=== PATIENT | male | born 1955 | race Caucasian/White ===

== ENCOUNTER → 2018-01-30 10:07 | Outpatient (CLI) | payer OTHER, SELFPAY ==
[2018-01-31 06:55] LABS: PSA, Free 1.15 ng/mL; Prostate Specific Ag 5.8 ng/mL (0.0-4.0)
== END ==
PROVIDERS: Visit Provider Urology
DX: R97.20 Elevated prostate specific antigen [PSA] (principal)
CPT/HCPCS: 36415; 84153; 84154

== ENCOUNTER → 2019-01-29 09:39 | Outpatient (CLI) | payer OTHER, SELFPAY ==
[2019-01-30 10:49] LABS: PSA, Free 1.65 ng/mL; Prostate Specific Ag 6.4 ng/mL (0.0-4.0)
== END ==
PROVIDERS: Visit Provider Urology
DX: N40.0 Benign prostatic hyperplasia without lower urinary tract symptoms (principal)
CPT/HCPCS: 36415; 84153; 84154

== ENCOUNTER → 2020-02-04 09:37 | Outpatient (CLI) | payer MEDICARE, SELFPAY ==
[2020-02-05 13:23] LABS: PSA, Free 1.43 ng/mL; Prostate Specific Ag 8.3 ng/mL (0.0-4.0)
== END ==
PROVIDERS: Visit Provider Urology
DX: Z87.898 Personal history of other specified conditions (principal); R97.20 Elevated prostate specific antigen [PSA]
CPT/HCPCS: 36415; 84153; 84154

== ENCOUNTER → 2020-08-30 10:30 | Outpatient (CLI) | payer MEDICARE, SELFPAY ==
[2020-08-31 09:13] LABS: PSA, Free 1.17 ng/mL; Prostate Specific Ag 6.3 ng/mL (0.0-4.0)
== END ==
PROVIDERS: Visit Provider Urology
DX: R97.20 Elevated prostate specific antigen [PSA] (principal)
CPT/HCPCS: 84153; 84154

== ENCOUNTER → 2021-03-02 10:03 | Outpatient (CLI) | payer MEDICARE, SELFPAY ==
[2021-03-03 08:14] LABS: PSA, Free 2.07 ng/mL; Prostate Specific Ag 7.6 ng/mL (0.0-4.0)
== END ==
PROVIDERS: Visit Provider Urology
DX: R97.20 Elevated prostate specific antigen [PSA] (principal)
CPT/HCPCS: 36415; 84153; 84154

== ENCOUNTER → 2021-08-31 11:10 | Outpatient (CLI) | payer MEDICARE, SELFPAY ==
[2021-09-01 10:17] LABS: PSA, Free 1.34 ng/mL; Prostate Specific Ag 6.7 ng/mL (0.0-4.0)
== END ==
PROVIDERS: PCP Family Medicine; Visit Provider Urology
DX: R97.20 Elevated prostate specific antigen [PSA] (principal)
CPT/HCPCS: 36415; 84153; 84154

== ENCOUNTER 2022-03-22 11:12 | Emergency (ER) | payer MEDICARE, SELFPAY ==
[2022-03-22 11:13] VITALS: BP 198/104; PULSE 104; RESP 20; TEMP 36.5; O2SAT 97; BMI 32.1
[2022-03-22 11:21] VITALS: BP 198/100; PULSE 93; RESP 18; O2SAT 98
--- NOTE | 2022-03-22 11:34 | HMH.EDGENADL ---
Discharge Plan Disposition Patient Disposition: Home, Self-Care Chief Complaint: Urogenital-Male Prescriptions Prescriptions: No Action ramipril 5 mg capsule 5 mg PO DAILY metformin 500 mg tablet 500 mg PO BID hydrochlorothiazide 12.5 mg tablet 12.5 mg PO DAILY rosuvastatin 10 mg tablet 10 mg PO DAILY hydrocodone-acetaminophen 1 EACH tablet 1 each PO Q8H PRN (Reason: Moderate To Severe Pain) Qty: 6 0RF promethazine 25 MG suppository 25 mg RC Q6H PRN (Reason: Nausea) Qty: 9 0RF nitrofurantoin monohyd/m-cryst 100 MG capsule 100 mg PO BID Qty: 14 0RF Referrals Follow up/Referrals: Shayan Lomeli MD [Primary Care Provider] - See instructions Activity Restrictions/Add. Instructions Additional Instructions/Restrictions: Please keep Davis catheter in until your appointment with Dr. Huston. Return for any fever flank pain or any other concerns within the next 8 hours. Follow-up as documented with Dr. Huston on Saturday. Clinical Impressions Clinical Impression: Acute urinary retention Discharge ED Provider: Cosme Lopez General Adult HPI General Chief complaint: Urogenital-Male Stated complaint: can't urinate, pain in groin area Time Seen by Provider: 03/22/22 11:25 History of Present Illness HPI narrative: 66-year-old male with history of kidney stone, BPH hypertension presents with difficulty with urination. He says he has been dribbling all night and having difficulty with peeing. He denies fever chills flank pain abdominal pain nausea or vomiting. He has not had problems with urinary retention before. He follows with Dr. Huston however was not able to be evaluated today Related Data Home Medications Medication Instructions Recorded Confirmed hydrochlorothiazide 12.5 mg tablet 12.5 mg PO DAILY Hypertension 01/30/18 08/31/21 metformin 500 mg tablet 500 mg PO BID diabetes management 01/30/18 08/31/21 ramipril 5 mg capsule 5 mg PO DAILY unk 01/30/18 08/31/21 rosuvastatin 10 mg tablet 10 mg PO DAILY Cholesterol 01/30/18 08/31/21 Previous Rx's Medication Instructions Recorded hydrocodone 5 mg-acetaminophen 325 1 each PO Q8H PRN Moderate To 04/19/18 mg tablet Severe Pain #6 tabs nitrofurantoin 100 mg PO BID #14 caps 04/19/18 monohydrate/macrocrystals 100 mg capsule promethazine 25 mg rectal 25 mg [place] Q6H PRN Nausea ##9 04/19/18 suppository Allergies Allergy/AdvReac Type Severity Reaction Status Date / Time PCN (PENICILLIN) Allergy Unknown Uncoded 08/31/21 10:44 PFSH [facility] Disclaimer: The information contained in this section may have been updated after the patient was seen, as this information can be updated by other users. Social History Smoking Status: Never smoker alcohol intake: never substance use type: denies use current occupational status: employed and retired Travel in the last 8 weeks: None household members: spouse housing: house ROS Obtained: Yes All systems reviewed & no additional complaints except as documented Constitutional Constitutional: Denies fever(s) Eyes Eyes: Denies dry eyes and Denies itchy eyes ENT Ears, Nose, Mouth, and Throat: Denies dizziness Cardiovascular Cardiovascular: Denies dyspnea Respiratory Respiratory: Denies cough and Denies dyspnea Gastrointestinal Gastrointestingal: Denies abdominal pain Genitourinary Male Genitourinary: Reports difficulty urinating, Reports oliguria and Denies urinary urgency Musculoskeletal Musculoskeletal: Denies abnormal gait Integumentary/Breasts Skin/Breast: Denies redness Neurologic Neurologic: Denies abnormal gait and Denies dizziness Allergic/Immunologic Allergic/Immunologic: Denies itchy eyes Physical Exam General General appearance: alert and in no apparent distress Eye Eye exam: Present PERRL and EOMI ENT ENT exam: Present normal exam and normal oropharynx Neck Neck exam: Present normal inspection Chest Chest inspection: Present symmetri
[2022-03-22 11:40] LABS: Microscopic, Urine URINE MICROSCOPIC (MICROSCOPIC)
--- NOTE | 2022-03-22 11:44 | PC.NURSE ---
1130 approx- pt to restroom to try to void to provide sample and ER MD requesting post void residual check with bladder scan. pt able to void approx 2-3 mL of urine, bladder scan reveals 610 mL of urine noted, notified ER MD who gave verbal order for catheter placement.
[2022-03-22 11:45] LABS: Appearance,Urine CLEAR (Clear); Bilirubin,Urine Negative (Negative); Blood, Urine Negative (Negative); Color,Urine YELLOW (Yellow); Glucose,Urine (UA) Negative (Negative); Ketones,Urine Negative (Negative); Leukocyte Esterase,Urine Negative (Negative); Nitrate,Urine Negative (Negative); PH,Urine 5.5 (5.0-8.5); Protein,Urine Negative (Negative); Urobilinogen,Urine 0.2 EU/dl (0.2)
--- NOTE | 2022-03-22 11:46 | PC.NURSE ---
pt tolerated catheter placement, draining clear dark yellow urine, pt reports improvement of pain after placement of catheter, pt resting in bed, states no needs at this time.
[2022-03-22 12:01] VITALS: BP 143/77; PULSE 91; RESP 18; O2SAT 92
--- NOTE | 2022-03-22 12:01 | PC.NURSE ---
APPOINTMENT MADE WITH DR PAUL ON SATURDAY AT 0930
[2022-03-22 12:15] VITALS: BP 143/77; PULSE 90; RESP 18; TEMP 36.6; O2SAT 97
== END 2022-03-22 12:15 | disposition home or self-care (01) ==
PROVIDERS: Emergency Provider Emergency Medicine; PCP Family Medicine
DX: R33.9 Retention of urine, unspecified (principal); R10.2 Pelvic and perineal pain; I10 Essential (primary) hypertension; N40.1 Benign prostatic hyperplasia with lower urinary tract symptoms; Z87.440 Personal history of urinary (tract) infections
CPT/HCPCS: 51702; 81001; 99284

== ENCOUNTER 2023-10-21 09:07 | Emergency (ER) | payer MEDICARE, SELFPAY ==
[2023-10-21 09:08] VITALS: BP 175/94; PULSE 99; RESP 21; TEMP 36.6; O2SAT 98; BMI 30.7
[2023-10-21 09:37] LABS: MANUAL DIFFERENTIAL MANUAL DIFFERENTIAL (MANUAL DIFF)
[2023-10-21 09:49] LABS: Microscopic, Urine URINE MICROSCOPIC (MICROSCOPIC)
--- NOTE | 2023-10-21 10:06 | PC.NURSE ---
Dr. Yoder at BS for pt eval
--- NOTE | 2023-10-21 10:06 | PC.NURSE ---
Dr. Yoder at bedside
--- NOTE | 2023-10-21 10:30 | HMH.EDGENADL ---
Discharge Plan Disposition Patient Disposition: Home, Self-Care Chief Complaint: Urogenital-Male Prescriptions Prescriptions: No Action ramipril 5 mg capsule 5 mg PO DAILY metformin 500 mg tablet 500 mg PO BID hydrochlorothiazide 12.5 mg tablet 12.5 mg PO DAILY rosuvastatin 10 mg tablet 10 mg PO DAILY hydrocodone-acetaminophen 1 EACH tablet 1 each PO Q8H PRN (Reason: Moderate To Severe Pain) Qty: 6 0RF promethazine 25 MG suppository 25 mg RC Q6H PRN (Reason: Nausea) Qty: 9 0RF nitrofurantoin monohyd/m-cryst 100 MG capsule 100 mg PO BID Qty: 14 0RF Referrals Follow up/Referrals: Shayan Lomeli MD [Primary Care Provider] - See instructions Activity Restrictions/Add. Instructions Additional Instructions/Restrictions: At this time it was felt you are safe to be discharged home. If new or worsening symptoms please do not hesitate to return the emergency department. Please call and schedule appoint with your urologist as soon as you are able as discussed. Clinical Impressions Clinical Impression: BPH (benign prostatic hyperplasia), Acute urinary retention Instructions Patient Instructions: DI for Urinary Tract Infection (UTI), DI for Urinary Tract Infection in Children Print Language Print Language: [place]ian Discharge ED Provider: Caleb Yoder General Adult HPI General Chief complaint: Urogenital-Male Stated complaint: Cant Urinate Time Seen by Provider: 10/21/23 09:21 Mode of Arrival: Family Vehicle Source of Information: Patient Limitations: No Limitations Description of Symptoms (Recalled from ER Triage Doc. by RN): Pt c/o inability to urinate since last night. States he has had this issue before and follows Dr. Huston. States it has been several years since he had to have a mckeon, but he feels pressure to urinate and has been pushing but just a trickle comes out . Denies any fever, chills, or body aches. Denies any gross hematuria. History of Present Illness HPI narrative: Patient is a 67-year-old male with past medical history of BPD on Flomax, previous urinary retention who presents emergency department for evaluation of urinary retention. He has had 1 single episode of this prior in the setting of cold medicine use with his BPH that required a Mckeon be anchored. Over the last 24 hours since last night he has had difficulty voiding with inability to void because and present here for continued evaluation. There was suprapubic discomfort. No other abdominal pain, no other acute complaints at this time. Related Data Home Medications ?Medication ?Instructions ?Recorded ?Confirmed hydrochlorothiazide 12.5 mg tablet 12.5 mg PO DAILY Hypertension 01/30/18 08/31/21 metformin 500 mg tablet 500 mg PO BID diabetes management 01/30/18 08/31/21 ramipril 5 mg capsule 5 mg PO DAILY unk 01/30/18 08/31/21 rosuvastatin 10 mg tablet 10 mg PO DAILY Cholesterol 01/30/18 08/31/21 Previous Rx's ?Medication ?Instructions ?Recorded hydrocodone 5 mg-acetaminophen 325 1 each PO Q8H PRN Moderate To 04/19/18 mg tablet Severe Pain #6 tabs nitrofurantoin 100 mg PO BID #14 caps 04/19/18 monohydrate/macrocrystals 100 mg capsule promethazine 25 mg rectal 25 mg [place] Q6H PRN Nausea ##9 04/19/18 suppository Allergies Allergy/AdvReac Type Severity Reaction Status Date / Time PCN (PENICILLIN) Allergy Unknown Uncoded 08/31/21 10:44 [facility] Disclaimer: The information contained in this section may have been updated after the patient was seen, as this information can be updated by other users. Social History Smoking Status: Never smoker alcohol intake: never substance use type: denies use current occupational status: employed and retired Travel in the last 8 weeks: None household members: spouse housing: house ROS Obtained: Yes Systems reviewed as appropriate & no additional complaints except as documented Physical Exam General General appearance:
[2023-10-21 10:33] LABS: Appearance,Urine CLEAR (Clear); Bilirubin,Urine Negative (Negative); Blood, Urine 3+ (Negative); Color,Urine YELLOW (Yellow); Glucose,Urine (UA) Negative (Negative); Ketones,Urine Negative (Negative); Leukocyte Esterase,Urine Negative (Negative); Nitrate,Urine Negative (Negative); Protein,Urine Negative (Negative); Specific Gravity, Urine 1.015 (1.005-1.030); Urobilinogen,Urine 0.2 EU/dl (0.2)
[2023-10-21 10:48] LABS: Albumin Level 4.6 g/dl (3.5-5.0); Chloride 105 mmol/L (98-107); Sodium 139 mmol/L (136-145)
[2023-10-21 10:49] LABS: Potassium 4.4 mmoL/L (3.5-5.1)
[2023-10-21 10:51] LABS: Alanine Aminotransferase 28 U/L (12-78); Albumin/Globulin Ratio 1.4 (1.1-1.8); Alkaline Phosphatase 69 U/L (38-126); Anion Gap 11.4 mEq/L (5-15); Aspartate Amino Transferase 30 U/L (17-59); Bilirubin,Total 0.5 mg/dl (0.2-1.3); Blood Urea Nitrogen 12 mg/dl (9-20); Carbon Dioxide 27 mmol/L (22.0-30.0); Creatinine Clearance Estimated 100 mL/min (50-200); Estimated Glomerular Filt Rate 84 ml/min (>60); GFR (African American) 102 ML/MIN (>60); Globulin 3.2 g/dL (1.3-3.2); Total Protein,Serum 7.8 g/dl (6.3-8.2)
[2023-10-21 10:52] LABS: Glucose 133 mg/dl (74-100)
[2023-10-21 10:59] LABS: Squamous Epithelial Cell,Urine Occasional #/hpf (0-5); WBC,Urine Occasional #/hpf (0-3)
--- NOTE | 2023-10-21 11:36 | PC.NURSE ---
pt resting in bed. updated on plan of care. bed in lowest position. call light within reach. no questions or concerns voiced.
[2023-10-21 11:39] LABS: Basophils % 0.6 % (0.1-2.0); Eosinophils # 0.1 K/mm3 (0.0-0.4); Eosinophils % 1.3 % (0.1-12.0); Hematocrit 50.4 % (42.0-52.0); Hemoglobin 15.9 g/dL (14.1-18.0); Lymphocytes # 0.9 K/mm3 (0.7-4.5); Lymphocytes % 13.4 % (10-50); Mean Corpuscular HGB Conc 31.5 g/dL (31.8-35.4); Mean Corpuscular Hemoglobin 28.1 pg (27.0-31.2); Mean Corpuscular Volume 89.2 fl (80-94); Mean Platelet Volume 8.3 fl (7.4-10.4); Monocytes # 0.4 K/mm3 (0.1-1.0); Neutrophils # 5.2 K/mm3 (1.8-7.8); Neutrophils % 78.6 % (37.0-80.0); Platelet Count 230 K/mm3 (142-424); Red Blood Count 5.66 M/mm3 (4.60-6.20); Red Cell Distribution Width 14.7 % (11.5-17.5); White Blood Count 6.6 K/mm3 (4.8-10.8)
[2023-10-21 11:41] VITALS: BP 140/96; PULSE 78; RESP 18; TEMP 36.7; O2SAT 96
[2023-10-21 12:13] LABS: Lymphocytes % 13 % (10-50); Monocytes % 6 % (2-9); Neutrophils % 81 % (42-76); Platelet Estimate Normal; RBC Morphology Normal; Total Cells Counted 100
== END 2023-10-21 11:48 | disposition home or self-care (01) ==
PROVIDERS: Emergency Provider Emergency Medicine; PCP Family Medicine
DX: N40.1 Benign prostatic hyperplasia with lower urinary tract symptoms (principal); R33.9 Retention of urine, unspecified
CPT/HCPCS: 51702; 80053; 81001; 85007; 85014; 85018; 85048; 85049; 99284

== ENCOUNTER 2023-11-02 07:27 | Emergency (ER) | payer MEDICARE, SELFPAY ==
[2023-11-02 07:28] VITALS: BP 137/77; PULSE 89; RESP 20; TEMP 36.8; O2SAT 98; BMI 29.9
[2023-11-02 07:35] VITALS: BP 137/77; PULSE 89; RESP 18; O2SAT 98
--- NOTE | 2023-11-02 07:44 | PC.NURSE ---
bladder scan for >500
[2023-11-02 08:00] VITALS: BP 156/81; PULSE 84; RESP 18; O2SAT 95
[2023-11-02 08:00] LABS: Microscopic, Urine URINE MICROSCOPIC (MICROSCOPIC)
[2023-11-02 08:02] LABS: Appearance,Urine SL CLOUDY (Clear); Bilirubin,Urine Negative (Negative); Blood, Urine 1+ (Negative); Color,Urine YELLOW (Yellow); Glucose,Urine (UA) Negative (Negative); Ketones,Urine Negative (Negative); Leukocyte Esterase,Urine TRACE (Negative); Nitrate,Urine POSITIVE (Negative); Protein,Urine Negative (Negative); Urobilinogen,Urine 0.2 EU/dl (0.2)
[2023-11-02 08:11] LABS: Bacteria,Urine 4+ /lpf
[2023-11-02] MEDS: CEFDINIR 300MG CAPSULE 300 MG PO (08:24)
--- NOTE | 2023-11-02 08:24 | PC.NURSE ---
i emptied approx 800 out of pts mckeon.
[2023-11-02 08:30] VITALS: BP 129/71; PULSE 78; RESP 16; O2SAT 96
--- NOTE | 2023-11-02 08:55 | HMH.EDGENADL ---
Discharge Plan Disposition Patient Disposition: Home, Self-Care Prescriptions Prescriptions: New cefdinir 300 mg capsule 300 mg PO BID 7 Days Qty: 14 0RF No Action ramipril 5 mg capsule 5 mg PO DAILY metformin 500 mg tablet 500 mg PO BID hydrochlorothiazide 12.5 mg tablet 12.5 mg PO DAILY rosuvastatin 10 mg tablet 10 mg PO DAILY hydrocodone-acetaminophen 1 EACH tablet 1 each PO Q8H PRN (Reason: Moderate To Severe Pain) Qty: 6 0RF promethazine 25 MG suppository 25 mg RC Q6H PRN (Reason: Nausea) Qty: 9 0RF nitrofurantoin monohyd/m-cryst 100 MG capsule 100 mg PO BID Qty: 14 0RF Referrals Follow up/Referrals: Shayan Lomeli MD [Primary Care Provider] - See instructions Activity Restrictions/Add. Instructions Additional Instructions/Restrictions: Call your family doctor to establish care for this visit to the emergency department and schedule follow-up within 48 hours to ensure improvement. If you have any worsening of your condition or any other concerning signs or symptoms, return to the emergency department or your primary care doctor for further evaluation. Be sure to clean catheter with cleaning solution at least once a day. Antibiotic twice daily for 7 days. Follow-up with urology as discussed. Clinical Impressions Clinical Impression: Bladder outlet obstruction, Acute UTI Instructions Patient Instructions: DI for Urinary Tract Infection (UTI), DI for Urinary Tract Infection in Children Print Language Print Language: Nigerian Discharge ED Provider: Rohan Suarez General Adult HPI General Chief complaint: Urogenital-Male Stated complaint: retaining urine Time Seen by Provider: 11/02/23 07:56 Mode of Arrival: Ambulatory Source of Information: Patient Limitations: No Limitations Description of Symptoms (Recalled from ER Triage Doc. by RN): unable to urinate. hx of prostate issues History of Present Illness HPI narrative: Please note that above description of symptoms, in this electronic medical record under categorization of recalled from ER triage doctor by RN are reflective of an initial nursing assessment, however, is not reflective of my full history and physical exam that was personally taken and clarified. Consequentially, this preceding description of symptoms, which may include the patient's categorized chief complaint in the EMR, do not reflect my personal clinical impression, and the ultimate description of history of present illness and patient stated complaints should be deferred to this section of the note. Unless stated otherwise or congruent with this section of the note, additional signs, symptoms, or incongruence should be interpreted as inaccurate with my clinical impression. Related Data Home Medications ?Medication ?Instructions ?Recorded ?Confirmed hydrochlorothiazide 12.5 mg tablet 12.5 mg PO DAILY Hypertension 01/30/18 08/31/21 metformin 500 mg tablet 500 mg PO BID diabetes management 01/30/18 08/31/21 ramipril 5 mg capsule 5 mg PO DAILY unk 01/30/18 08/31/21 rosuvastatin 10 mg tablet 10 mg PO DAILY Cholesterol 01/30/18 08/31/21 Previous Rx's ?Medication ?Instructions ?Recorded hydrocodone 5 mg-acetaminophen 325 1 each PO Q8H PRN Moderate To 04/19/18 mg tablet Severe Pain #6 tabs nitrofurantoin 100 mg PO BID #14 caps 04/19/18 monohydrate/macrocrystals 100 mg capsule promethazine 25 mg rectal 25 mg [place] Q6H PRN Nausea ##9 04/19/18 suppository cefdinir 300 mg capsule 300 mg PO BID 7 days #14 caps 11/02/23 Allergies Allergy/AdvReac Type Severity Reaction Status Date / Time PCN (PENICILLIN) Allergy Unknown Uncoded 08/31/21 10:44 [facility] Disclaimer: The information contained in this section may have been updated after the patient was seen, as this information can be updated by other users. Social History Smoking Status: Never smoker alcohol intake: never substance use type: denies use current occupational status: employed and retired Travel in the last 8 weeks: None household members: spouse housing: house ROS Obtained: Yes All systems reviewed & no additional complaints except as documented Physical Exam General General appearance: alert and in no apparent distress Head Head exam: atraumatic and normocephalic Eye Eye exam: Present normal appearance, PERRL and EOMI Neck Neck exam: Present normal inspection, full ROM and trachea midline Respiratory Respiratory exam: Absent respiratory distress, wheezes, stridor, accessory muscle use or prolonged expiratory phase Cardiovascular Cardiovascular exam: Present other (Pulses equal symmetric in upper and lower extremities) Abdominal Exam Abdominal exam: Present soft and distention; Absent tenderness or pulsatile mass Abdominal tenderness: Present suprapubic (Suprapubic distention, no tenderness) Extremities Exam Extremities exam: Absent edema Back Exam Back exam: Absent CVA tenderness (R) or CVA tenderness (L) Neurological Exam Neurological exam: Present alert, oriented X3 and CN II-XII intact; Absent motor sensory deficit Skin Skin exam: Present warm and dry; Absent diaphoresis or erythema Medical Decision Making Medical Records Medical records reviewed: Yes I reviewed the patient's medical records. [place] Inquiry Pt receiving controlled substance: No [place] was queried for this patient: No Vital Signs: 11/02/23 07:28 11/02/23 07:35 11/02/23 08:00 Temperature 98.2 F Temperature Source Oral Pulse Rate 89 84 Pulse Rate [Right] 89 Respiratory Rate 20 18 18 Blood Pressure 137/77 156/81 H Blood Pressure [Right Arm] 137/77 Blood Pressure Mean 89 89 Blood Pressure Mean [Right Arm] 97 02 Sat by Pulse Oximetry 98 98 95 Oxygen Delivery Method Room Air 11/02/23 08:30 Temperature Temperature Source Pulse Rate 78 Pulse Rate [Right] Respiratory Rate 16 Blood Pressure 129/71 Blood Pressure [Right Arm] Blood Pressure Mean 90 Blood Pressure Mean [Right Arm] 02 Sat by Pulse Oximetry 96 Oxygen Delivery Method Lab Data Lab Results 11/02/23 07:50: Urine Color Yellow, Urine Appearance Sl cloudy, Urine pH 6.0, Ur Specific [place] 1.020, Urine Protein Negative, Urine Glucose (UA) Negative, Urine Ketones Negative, Urine Blood 1+ A, Urine Nitrate Positive, Urine Bilirubin Negative, Urine Urobilinogen 0.2, Ur Leukocyte Esterase Trace, Urine RBC 5-10, Urine WBC 3-5, Ur Squamous Epith Cells None, Urine Bacteria 4+ Orders (Tests/Meds): ED MEDICATIONS Discontinued Medications Generic Name Dose Route Start Last Admin Trade Name Jalen PRN Reason Stop Dose Admin Cefdinir 300 mg 11/02/23 08:14 11/02/23 08:24 Cefdinir 300mg Capsule PO 11/02/23 08:15 300 mg ONCE ONE Administration ORDERS Category Date Time Status UA [Urinalysis and Microscopic] Stat Lab 11/02/23 07:50 Completed Urine Culture Stat Micro 11/02/23 07:50 Received Medical Decision Narrative: 67-year-old male history of BPH necessitating catheter twice in the past following with urology at outside facility presenting with urinary retention. Was able to go right around 10 PM last night, 10/31. This morning around 3 AM, try to wake up and go to the restroom, only had small amount of dribbling out. States that since that time, has had increasing pressure in his lower abdomen. No objective fevers or chills, nausea or vomiting, flank pain. No hematuria. No dysuria, abnormal urine symptoms otherwise. History obtained with patient. On arrival, patient in no distress, but does have suprapubic fullness. Differential includes BPH, UTI, malignancy, calcium stone obstruction, among others. Bladder scan with greater than 600 mL, Davis catheter was anchored and nearly 750 out. Urinalysis sent, patient does have urinary tract infection, given initial dose of cefdinir here. Conversation had with patient, he does have close follow-up with urology. I feel he is appropriate for home-going and outpatient follow-up. Because patient at baseline without signs or symptoms of clinical decompensation, deemed appropriate for discharge. Results were relayed to patient who voiced understanding and were agreeable to outpatient management and follow up. I discussed my clinical impression with patient and answered all questions. At this time, the evidence for any other entities in the differential is insufficient to warrant any further testing or ED observation. This was explained as well. Advisory was given that persistent or worsening symptoms require further evaluation. I confirmed the understanding of this discussion. [employer] Specialist disclaimer Much of this encounter note is an electronic silverware buffer spoken language to printed text. Electronic silverware buffer of the spoken language may permit errors. Although I have reviewed the note, some errors may still exist. Critical Care Critical Care Time Critical Care Time: No
[2023-11-02 08:56] VITALS: BP 129/71; PULSE 89; RESP 18; TEMP 36.7; O2SAT 98
--- NOTE | 2023-11-02 09:15 | PC.NURSE ---
i put pt a leg bag on for comfort at discharge. education on mckeon care given.
--- NOTE | 2023-11-04 09:32 | PC.NURSE ---
discussed final urine culture results with , pt dc with cefdinir, ntd
== END 2023-11-02 09:15 | disposition home or self-care (01) ==
PROVIDERS: Emergency Provider Emergency Medicine; PCP Family Medicine
DX: N32.0 Bladder-neck obstruction (principal); N39.0 Urinary tract infection, site not specified; N40.1 Benign prostatic hyperplasia with lower urinary tract symptoms
CPT/HCPCS: 81001; 87086; 87088; 87186; 99285

== ENCOUNTER 2024-06-09 09:36 | Outpatient (CLI) | payer MEDICARE, SELFPAY ==
--- NOTE | 2024-06-09 | CA_ITS ---
APPROVED REPORT Exam: Exercise Treadmill Technologist: Selene Hedrick Ht: 5 ft 10 in Wt: 243 lbs BSA: 2.27 m2 HR: 72 bpm BP: 158/95 mmHg Rhythm: NSR Stress Test Details Test: Exercise stress testing was performed using a Yfn protocol. HR Resting HR: 72 bpm Max Heart Rate (APMHR): 151 bpm Max HR Achieved: 158 bpm Target HR (85% APMHR): 128 bpm % of APMHR: 105 Recovery HR: 98 bpm HR response to stress: Normal HR response to stress BP Resting BP: 158.0/95.0 mmHg Max BP: 200.0/88.0 mmHg Recovery BP: 147.0/98.0 mmHg BP response to stress: Abnormal hypertensive response to stress. ECG Resting ECG: Sinus rhythm with PAC Stress ECG: < 0.[address] depression Arrhythmia: PACs, PVCs Clinical Exercise duration: 10:00 min Exercise capacity: 12.1 METs Stress ECG Conclusion Symptoms: Mild dyspnea, leg fatigue Arrhythmias/Ectopy: PAC, PVC ST-T Changes: 0.[address] depression Conclusion: Average exercise capacity. No evidence of ischemia on ECG at peak stress. Of note, the patient had a hypertensive BP response to exercise. BP control is recommended. Electronically signed by : Fang Jackson MD 06/09/2024 15:09:31
--- OUTSIDE RECORDS SUMMARY | 2024-06-09 09:38 | XMS_ITS ---
Author Organization Unknown TREATMENT PLAN Planned Care Start Date Provider Encounter for Check-up [id number] [facility]
--- OUTSIDE RECORDS SUMMARY | 2024-06-09 09:39 | XMS_ITS | Data Portability ---
Author Organization [facility] [place] Address [address] [place] [address] Care Team Providers Care Ecological Modeler Name Role Phone LAWRENCE ROMO Primary Care Provider Assessment No assessment recorded. Plan of Treatment Reminders Order Date Submit Date Provider Last Modified By Organization Details Last Modified Time Details Appointments OV EST 15 2024 10:15A M Maco Paul Jr, MD Not available Not available Not available Lab PSA, serum or plasma 2024 025 [facility] (Lab Registration) , [address] [place] [address] [place], [address], 03/12/2024 20:43:14 Referral None recorded. Procedures None recorded. Surgeries None recorded. Imaging None recorded. Medication Orders tamsulosi n 0.4 mg capsule 2023 024 [facility], [address] [facility], [address], [place], [address], 10/25/2023 12:40:00 Patient TargetsNo targets recorded. Patient InstructionsNo instructions recorded. Reason for Referral None Reported. Results Created Date Observation Date Name Description Value Unit Range Abnormal Flag Note LastModifiedBy Organization Detail LastModifiedTime 11/29/1911/29/2023 BASIC METAB OLIC PANEL sodium 144 mmol/ L 137-14 7 Not Available [facility] (Pre-Op Clinic) [address] [place] [address] [place], [address], 11/29/2023 11:52:46 11/29/1911/29/2023 BASIC METAB OLIC PANEL potassium 4.2 mmol/ L 3.5-5. 1 Not Available [facility] (Pre-Op Clinic) [address] [place] [address] [place], [address], 11/29/2023 11:52:46 11/29/1911/29/2023 BASIC METAB OLIC PANEL chloride 105 mmol/ L 98-110 Not Available [facility] (Pre-Op Clinic) [address] [place] [address] [place], [address], 11/29/2023 11:52:46 11/29/1911/29/2023 BASIC METAB OLIC PANEL carbon dioxide 29 mmol/ L 21-30 Not Available [facility] (Pre-Op Clinic) [address] [place] [address] [place], [address], 11/29/2023 11:52:46 11/29/1911/29/2023 BASIC METAB OLIC PANEL anion gap 10 mmol/ L 6-14 Not Available [facility] (Pre-Op Clinic) [address] [place] [address] [place], [address], 11/29/2023 11:52:46 11/29/1911/29/2023 BASIC METAB OLIC PANEL glucose 74 mg/dL 70-115 Not Available [facility] (Pre-Op Clinic) [address] [place] [address] [place], [address], 11/29/2023 11:52:46 11/29/1911/29/2023 BASIC METAB OLIC PANEL BUN 17 mg/dL 9-20 Not Available [facility] (Pre-Op Clinic) [address] [place] [address] [place], [address], 11/29/2023 11:52:46 11/29/1911/29/2023 BASIC METAB OLIC PANEL creatinine 0.9 mg/dL 0.5-1. 5 Not Available [facility] (Pre-Op Clinic) [address] [place] [address] [place], [address], 11/29/2023 11:52:46 11/29/19 24 11/29/2023 BASIC METAB OLIC PANEL BUN/creatini ne ratio 19 ratio 10-20 Not Available [facility] (Pre-Op Clinic) [address] [place] [address] [place], [address], 11/29/2023 11:52:46 11/29/19 24 11/29/2023 BASIC METAB OLIC PANEL glom filtration rate 92 mL/mi n >60- GFR LIMIT ATION : The eGFR equat ion CKD-E PI 2020 is not appli cable for pedia tric patie nts or great er than 90 years of age. The follo wing condi tions may alter the GFR resul t: extre mes in body size, malnu triti on or obesi ty, skele tati muscl e disea se, parap legia or quadr ipleg ia, veget rickey diet or rapid ly estrada ing kiney funct ion. Not Available [facility] (Pre-Op Clinic) [address] [place] [address] [place], [address], 11/29/2023 11:52:46 11/29/19 24 11/29/2023 BASIC METAB OLIC PANEL osmolality (calculated) 299 mosmo l/kg 275-30 1 OSMOL ALITY IS A CALCU LATIO N UTILI ZING THE SERUM /PLAS MA SODIU M, GLUCO SE AND UREA NITRO GEN (BUN) LEVEL S. FOR THE MOST ACCUR ATE RESUL T A MEASU RED SERUM OSMOL ALITY IS SUGGE STED. Not Available [facility] (Pre-Op Clinic) [address] [place] [address] [place], [address], 11/29/2023 11:52:46 11/29/19 24 11/29/2023 BASIC METAB OLIC PANEL calcium 9.4 mg/dL 8.5-10 .8 Not Available [facility] (Pre-Op Clinic) [address] [place] [address] [place], [address], 11/29/2023 11:52:46 11/29/19 24 11/29/2023 BASIC METAB OLIC PANEL note Unles s other maloney noted testi ng perfo [facility]med at: [facility] [address] [place] [address] Clay mendez MD Not Available [facility] (Pre-Op Clinic) [address] [place] [address] [place], [address], 11/29/2023 11:52:46 12/03/19 24 12/03/2023 RFS-P ATHOL OGY SPECI MEN REQUE ST pathreq Patho logy [address] [place] [address] Phone or [phone] Fax Raul rosen Jr., M.D., Medic al Direc tor [facility] [address] : [place] [address] Phone Numbe r: [id number] 00 Clay mendez M.D. PATHO LOGY REPOR T Patie nt Name: LAVERN Parrish Date of : 1955 Age/S ex: 68/M Accou nt Numbe r: [id number] Medic al Recor d Numbe r: [id number] 2 Order ing MD: ZAHIRA PAUL AM Date Colle cted : 2023 Date Recei micheal : 2023 Date Repor andrzej : 12/04 Exam: Biops y Acces faustino# : [id number] Labor atory #: [id number] Copie s To: FARRAH BRAVO Techn ician : Clini sheila Histo ry Benig n prost atic hyper plasi a with outfl ow obstr uctio n BodyS ite PROST ATE, TUR Gross Descr iptio n Recei michael in forma nick label ed pros aquino chips is a TURP speci men consi sting of a 20 g, 7 x 6 x 1.[address] of fragm ented , pollock-p ink tissu e. At least 50% of the speci men is submi tted in 10 casse ttes. LDP Micro scopi c Descr iptio n Secti ons confi rm fibro muscu lar prost atic dale a with numer ous embed ded hyper plast ic gland . The dale a demon strat es multi focal nodul ar hyper plasi a with patch y chron ic infla mmati on. No evide nce of intra epith elial or invas tyler carci noma is obser michael. Final Diagn osis BENIG N PROST ATIC HYPER PLASI A EJT/[place] [address] Legal ly authe ntica andrzej by CLAY GARCIA MD 12-04 13:16 :00 Not Available [facility] (Pre-Op Clinic) [address] [place] [address] [place], [address], 12/05/2023 13:38:38 12/04/1912/04/2023 CBC NO DIFF (HEMO GRAM) WBC 10.35 K/uL 4.5-11 .5 Not Available [facility] (Pre-Op Clinic) [address] [place] [address] [place], [address], 12/04/2023 07:22:42 12/04/1912/04/2023 CBC NO DIFF (HEMO GRAM) RBC 4.71 M/uL 4.0-5. 4 Not Available [facility] (Pre-Op Clinic) [address] [place] [address] [place], [address], 12/04/2023 07:22:42 12/04/19 24 12/04/2023 CBC NO DIFF (HEMO GRAM) HGB 12.8 g/dL 14.0-1 8.0 low Not Available [facility] (Pre-Op Clinic) [address] [place] [address] [place], [address], 12/04/2023 07:22:42 12/04/1912/04/2023 CBC NO DIFF (HEMO GRAM) HCT 39.4 % 40-54 low Not Available [facility] (Pre-Op Clinic) [address] [place] [address] [place], [address], 12/04/2023 07:22:42 12/04/19 24 12/04/2023 CBC NO DIFF (HEMO GRAM) MCV 83.7 fL 80.0-1 00.0 Not Available [facility] (Pre-Op Clinic) [address] [place] [address] [place], [address], 12/04/2023 07:22:42 12/04/19 24 12/04/2023 CBC NO DIFF (HEMO GRAM) MCH 27.2 pg 26.0-3 2.0 Not Available [facility] (Pre-Op Clinic) [address] [place] [address] [place], [address], 12/04/2023 07:22:42 12/04/19 24 12/04/2023 CBC NO DIFF (HEMO GRAM) MCHC 32.5 g/dL 32.0-3 6.0 Not Available [facility] (Pre-Op Clinic) [address] [place] [address] [place], [address], 12/04/2023 07:22:42 12/04/1912/04/2023 CBC NO DIFF (HEMO GRAM) RDW 14.2 % 11.5-1 4.5 Not Available [facility] (Pre-Op Clinic) [address] [place] [address] [place], [address], 12/04/2023 07:22:42 12/04/19 24 12/04/2023 CBC NO DIFF (HEMO GRAM) platelet count 211 K/uL 142-42 4 Not Available [facility] (Pre-Op Clinic) [address] [place] [address] [place], [address], 12/04/2023 07:22:42 12/04/19 24 12/04/2023 CBC NO DIFF (HEMO GRAM) MPV 9.5 fL 6.8-10 .2 Not Available [facility] (Pre-Op Clinic) [address] [place] [address] [place], [address], 12/04/2023 07:22:42 12/04/19 24 12/04/2023 CBC NO DIFF (HEMO GRAM) note Unles s other maloney noted testi ng perfo rmed at: [facility] [address] [place] [address] Clay mendez MD Not Available [facility] (Pre-Op Clinic) [address] [place] [address] [place], [address], 12/04/2023 07:22:42 12/04/1912/04/2023 BASIC METAB OLIC PANEL sodium 140 mmol/ L 137-14 7 Not Available [facility] (Pre-Op Clinic) [address] [place] [address] [place], [address], 12/04/2023 07:54:13 12/04/1912/04/2023 BASIC METAB OLIC PANEL potassium 3.7 mmol/ L 3.5-5. 1 Not Available [facility] (Pre-Op Clinic) [address] [place] [address] [place], [address], 12/04/2023 07:54:13 12/04/1912/04/2023 BASIC METAB OLIC PANEL chloride 106 mmol/ L 98-110 Not Available [facility] (Pre-Op Clinic) [address] [place] [address] [place], [address], 12/04/2023 07:54:13 12/04/1912/04/2023 BASIC METAB OLIC PANEL carbon dioxide 26 mmol/ L 21-30 Not Available [facility] (Pre-Op Clinic) [address] [place] [address] [place], [address], 12/04/2023 07:54:13 12/04/1912/04/2023 BASIC METAB OLIC PANEL anion gap 8 mmol/ L 6-14 Not Available [facility] (Pre-Op Clinic) [address] [place] [address] [place], [address], 12/04/2023 07:54:13 12/04/1912/04/2023 BASIC METAB OLIC PANEL glucose 109 mg/dL 70-115 Not Available [facility] (Pre-Op Clinic) [address] [place] [address] [place], [address], 12/04/2023 07:54:13 12/04/19 12/04/2023 BASIC METAB OLIC PANEL BUN 13 mg/dL 9-20 Not Available [facility] (Pre-Op Clinic) [address] [place] [address] [place], [address], 12/04/2023 07:54:13 12/04/19 24 12/04/2023 BASIC METAB OLIC PANEL creatinine 0.9 mg/dL 0.5-1. 5 Not Available [facility] (Pre-Op Clinic) [address] [place] [address] [place], [address], 12/04/2023 07:54:13 12/04/1912/04/2023 BASIC METAB OLIC PANEL BUN/creatini ne ratio 14 ratio 10-20 Not Available [facility] (Pre-Op Clinic) [address] [place] [address] [place], [address], 12/04/2023 07:54:13 12/04/1912/04/2023 BASIC METAB OLIC PANEL glom filtration rate 92 mL/mi n >60- GFR LIMIT ATION : The eGFR equat ion CKD-E PI 2020 is not appli cable for pedia tric patie nts or great er than 90 years of age. The follo wing condi tions may alter the GFR resul t: extre mes in body size, malnu triti on or obesi ty, skele tati muscl e disea se, parap legia or quadr ipleg ia, veget rickey diet or rapid ly estrada ing kiney funct ion. Not Available [facility] (Pre-Op Clinic) [address] [place] [address] [place], [address], 12/04/2023 07:54:13 12/04/1912/04/2023 BASIC METAB OLIC PANEL osmolality (calculated) 292 mosmo l/kg 275-30 1 OSMOL ALITY IS A CALCU LATIO N UTILI ZING THE SERUM /PLAS MA SODIU M, GLUCO SE AND UREA NITRO GEN (BUN) LEVEL S. FOR THE MOST ACCUR ATE RESUL T A MEASU RED SERUM OSMOL ALITY IS SUGGE STED. Not Available [facility] (Pre-Op Clinic) [address] [place] [address] [place], [address], 12/04/2023 07:54:13 12/04/19 24 12/04/2023 BASIC METAB OLIC PANEL calcium 8.4 mg/dL 8.5-10 .8 low Delta check value revie wed and confi rmed. Not Available [facility] (Pre-Op Clinic) [address] [place], [address], 12/04/2023 07:54:13 12/04/1912/04/2023 BASIC METAB OLIC PANEL note Unles s other maloney noted testi ng perfo rmed at: [facility] [address] [place] [address] Clay mendez MD Not Available [facility] (Pre-Op Clinic) [address] [place] [address] [place], [address], 12/04/2023 07:54:13 03/12/19 25 03/12/2024 PROST ATE SPECI FIC AG (PSA) PSA 7.03 NG/mL 0.00-4 .00 high Not Available [facility] (Pre-Op Clinic) [address] [place] [address] [place], [address], 03/12/2024 20:43:14 03/12/19 25 03/12/2024 PROST ATE SPECI FIC AG (PSA) note Unles s other maloney noted testi ng perfo rmed at: [facility] [address] [place] [address] Clay mendez MD Not Available [facility] (Pre-Op Clinic) [address] [place] [address] [place], [address], 03/12/2024 20:43:14 12/05/19 24 12/05/2023 benito mcneal am No observ ation record ed. [email or web address] [facility] Medical Records [address] [place] [address] [place], [address], 12/09/2023 09:58:55 Result Notes None recorded. Procedures Surgical History Date Name Laterality Status Provider Name and Address Organization Details Recorded Time 12/09/19 24 Bladder Irrigation completed Maco Paul Jr, MD [address] [facility], [address], [place], [address], [place] [facility] [place] 12/09/2023 10:16:45 11/06/19 24 Cystoscopy-Male completed Maco Paul Jr, MD [address] [facility], [address], [place], [address], [place] - [facility] - [place] [facility] [place] 11/20/2023 21:40:54 02/25/19 24 Prostate Surgery completed Grabielkhrisestefani Jermaine KHUSHBOO - [facility] - [place] [facility] [place] 12/09/2023 09:33:03 02/25/19 19 Other completed Claudia CUELLO - [facility] [place] 12/09/2023 09:33:03 02/25/18 82 Other completed Luis Daniel Carbajal KHUSHBOO - [facility] [place] 03/12/2024 10:51:44 02/25/18 80 Appendectomy completed Mariah CUELLO - [facility] [place] 03/27/2022 09:17:49 Imaging Results Imaging Date Name Status LastModified by Organization Details LastModified Time 12/05/2023 electrocardiogram completed [email or web address] Luis Rosen [facility] Medical Records [address] [place] [address], [address], 12/09/2023 09:58:55 Procedure Notes None recorded. Medical Equipment None Reported. Allergies Allergen ID Allergen Name Allergen Category Reaction Reaction Severity Criticality Documentation Date Start Date Code Code System Note Provider Name and Address Organization Details Recorded Time 46677 Product containin g penicilli n (product) medicatio n Not available Not available Not available 03/27/2022 29868 8001 SNOMED Mariah Younger [facility], KHUSHBOO - [facility] [place] 09:18:06 Medications Name Sig Start Date Stop Date Status Note LastModified by Organization Details LastModified Time metformin 500 mg tablet Take 1 tablet twice a day by oral route. active Not Available Not Available No t Available tamsulosin 0.4 mg capsule Take 1 capsule twice a day by oral route for 90 days. 11/17 /2024 completed Not Available Not Available Not Available hydrochlorot hiazide 25 mg tablet active Not Available Not Available No t Available levofloxacin 500 mg tablet 01/11 completed Not Available Not Available Not Available cefdinir 300 mg capsule Take 1 capsule every 12 hours by oral route for 10 days. 01/11 completed Not Available Not Available Not Available ramipril 5 mg capsule Take 1 capsule every day by oral route. active Not Available Not Available No t Available rosuvastatin 10 mg tablet Take 1 tablet every day by oral route. active Not Available Not Available No t Available Vitamin D active Not Available Not Patti ilable Not Available CoQ-10 active Not Available Not Availa ble Not Available Vitals Date Recorded Body height Body mass index (BMI) Body weight Body temperature Provider Name and Address Organization Details Last Updated DateTime 10/25/2023 180.34 cm 32.4 kg/m2 724831.43 g 98.1 [degF] khrisestefani [facility] 10/25/2023 10:54:36 Date Recorded Body height Body mass index (BMI) Body weight Body temperature Provider Name and Address Organization Details Last Updated DateTime 11/06/2023 180.34 cm 32.4 kg/m2 278332.43 g 98.5 [degF] [facility] 11/06/2023 14:26:03 Date Recorded Body height Body mass index (BMI) Body weight Body temperature Provider Name and Address Organization Details Last Updated DateTime 12/09/2023 180.34 cm 32.4 kg/m2 509538.43 g 98 [degF] [facility] 12/09/2023 09:32:51 Date Recorded Body height Body mass index (BMI) Body weight Body temperature Provider Name and Address Organization Details Last Updated DateTime 01/13/2024 180.34 cm 32.4 kg/m2 188798.43 g 98.5 [degF] [facility] 01/13/2024 11:06:28 Date Recorded Body height Body mass index (BMI) Body weight Body temperature Provider Name and Address Organization Details Last Updated DateTime 03/12/2024 180.34 cm 32.4 kg/m2 209368.43 g 98.5 [degF] Luis Daniel CUELLO - [facility] [place] 03/12/2024 10:50:38 Social History Question Answer Notes LastModified by Organizat ion Details LastModified Time Tobacco Smoking Status Never Smoker [facility] [place] 03/27/2022 09:17:49 Do You Have An Advance Directive? Yes [email or web address] Information not available 02/06/2023 What Is Your Level Of Alcohol Consumption? Occasional [email or web address] Information not available 03/27/2022 Are You Blind Or Do You Have Difficulty Seeing? No Information not available 03/27/2022 What Was The Date Of Your Most Recent Tobacco Screening? 03/09/2024 [email or web address] Information not available 03/12/2024 Are You Passively Exposed To Smoke? No [email or web address] Information no t available 03/27/2022 Do You Or Have You Ever Used Smokeless Tobacco? Never Used Smokeless Tobacco Information not available 12/09/2023 Do You Feel Stressed (tense, Restless, Nervous, Or Anxious, Or Unable To Sleep At Night)? [id number] Information not available 03/27/2022 Do You Use Any Illicit Or Recreational Drugs? No [email or web address] Information not available 03/27/2022 Sex: Male Functional Status Question Answer Note LastModified by Organization D etails LastModified Time What is your exercise level? Moderate [email or web address] Information not available 02/06/2023 Mental Status None recorded. Family History Nothing Reported Notes:mother dee ia father heart attack Medical History Condition Response Hypertension Y Past Encounters Encounter ID Performer Location Encounter Start Date Encounter Closed Date Diagnosis/Indication Diagnosis SNOMED-CT Code Diagnosis ICD10 Code Diagnosis Note [id number] Maco Paul Jr, MD [facility] [place] [address] 03/27/2022 09:00:48 03/27/2022 11:19:53 Benign prostatic hyperplasia with outflow obstruction 540941576 N40.1 patient with recent urinary retention. Patient states he was taking some cold medication s at the time that he went into urinary retention. He had not had any lower urinary tract symptoms in the past has not been on medication s for prostate enlargemen t. Voiding trial was performed today he was able to void 200 cc of the 200 cc that were placed into his bladder. Was placed on tamsulosin and will follow up in August with his PSA. Prostate s pecific antigen above reference range 592205749 R97.20 patient with history of elevated PSA. He go prostate biopsy back in 2009. PSAs have remained stable for several years and he is due for repeat PSA in August. [id number] Maco Paul Jr, MD [facility] [address] [place] [address] [facility] [place] [address] 09/06/2022 13:45:25 09/06/2022 14:41:23 Prostate specific antigen above reference range 185607723 R97.20 patient with history of elevated PSA. He go prostate biopsy back in 2009. PSAs have remained stable for several years. We will repeat a free and total PSA today. Digital rectal examinatio n is benign. Benign pro static hyperplasia with outflow obstruction 536945305 N40.1 patient with urinary retention in February. Patient states he was taking some cold medication s at the time that he went into urinary retention. He had not had any lower urinary tract symptoms in the past has not been on medication s for prostate enlargemen t. patient continues to void well his bladder scan today shows residual 20 cc. He is to continue the tamsulosin . [id number] Maco Paul Jr, MD [facility] [address] [place] [address] [facility] [place] [id number] 03/04/2023 13:13:49 03/04/2023 14:13:00 Prostate specific antigen above reference range 653397725 R97.20 patient with history of elevated PSA. He go prostate biopsy back in 2009. PSAs have been creeping up but relatively stable. We will repeat a free and total PSA today. If stable will continue six-month checkups. Benign pro static hyperplasia with outflow obstruction 359900008 N40.1 patient with urinary retention in February. Patient states he was taking some cold medication s at the time that he went into urinary retention. he has had no further problems with retention. He is voiding well on the tamsulosin and is to continue. [id number] Maco Paul Jr, MD [facility] [address] [place] [address] [facility] [employer] [place] [id number] 09/12/2023 13:06:54 09/12/2023 13:52:15 Prostate specific antigen above reference range 193922638 R97.20 patient with history of elevated PSA. He go prostate biopsy back in 2009. PSAs have been creeping up but relatively stable. We will repeat a free and total PSA today. If stable will continue six-month checkups. Benign pro static hyperplasia with outflow obstruction [id number] N40.1 patient with urinary retention in February. Patient states he was taking some cold medication s at the time that he went into urinary retention. he has had no further problems with retention. He is voiding well on the tamsulosin and is to continue. [id number] Maco Paul Jr, MD [facility] [address] [address] 10/25/2023 10:48:22 10/25/2023 11:58:09 Benign prostatic hyperplasia with outflow obstruction [id number] N40.1 patient with urinary retention in . Patient states he was taking some cold medication s at the time that he went into urinary retention. last week he had allergic reaction to some going behind his house and he has had an another episode of retention. He was in the emergency room few days ago Mckeon catheter placed with 600 cc out. He was discharged home with his Mckeon catheter and a voiding trial was performed today and he was able to void 250 cc of 300 cc instilled. We will increase his Flomax to 2 a day and we also discussed other treatment options including TURP or UroLift. He will consider those. Prostate s pecific antigen above reference range 012771071 R97.20 patient with history of elevated PSA. PSA last month was 8.5 with a free PSA putting him at a 20% risk of prostate cancer. Patient wishes to continue close monitoring . [id number] [facility] [address] [address] 11/06/2023 14:06:21 11/06/2023 16:13:26 Benign prostatic hyperplasia with outflow obstruction [id number] N40.1 patient with urinary retention in . Patient states he was taking some cold medication s at the time that he went into urinary retention. last week he had allergic reaction to some going behind his house and he has had an another episode of retention. He was in the emergency room few days ago Mckeon catheter placed with 600 cc out. He had another episode of retention on 11/01.Cysto today shows bilobar hyperplasi a but no median lobe or chronic changes of SAM.200 cc instilled into bladder and he was able to void 175 cc.Discuss ed treatment options of Urolift vs TurP. He will consider. Prostate s pecific antigen above reference range [id number] R97.20 patient with history of elevated PSA. PSA last month was 8.5 with a free PSA putting him at a 20% risk of prostate cancer. Patient wishes to continue close monitoring . [id number] Maco Paul Jr, MD [facility] [employer] [id number] 12/09/2023 09:29:19 12/09/2023 10:23:27 Benign prostatic hyperplasia with outflow obstruction [id number] N40.1 patient with history of BPH and a couple of episodes of urinary retention. He underwent TURP last week and returns for voiding trial today. 325 cc placed into his bladder and his catheter removed. He was able to void 275 cc with good stream. Patient reassured and push fluids and take it easy over next 3 4 weeks. Will return to office 1 month with a bladder scan. Prostate s pecific antigen above reference range [id number] R97.20 patient with history of elevated PSA. PSA last month was 8.5 with a free PSA putting him at a 20% risk of prostate cancer. patient is status post TURP 6 days ago. Pathology showed no evidence of prostate cancer. Patient was reassured. We discussed that after TURP PSA should improve. Will repeat in February. [id number] Maco Paul Jr, MD [facility] [address] [facility] [employer] [id number] 01/13/2024 10:39:02 01/13/2024 12:07:21 Benign prostatic hyperplasia with outflow obstruction [id number] N40.1 patient with history of BPH and a couple of episodes of urinary retention. He underwent TURP last month and states he is doing very well and is very happy with the results from the procedure. Prostate s pecific antigen above reference range [id number] R97.20 patient with history of elevated PSA. patient's PSA has been chronicall y elevated. Prostate chips showed no evidence of cancer. We discussed that his PSA will likely decrease after TURP. We will repeat his PSA in February. [id number] Maco Paul Jr, MD [facility] [employer] [id number] 03/12/2024 10:35:15 03/12/2024 11:09:12 Prostate specific antigen above reference range [id number] R97.20 patient with history of elevated PSA. patient's PSA has been chronicall y elevated. Prostate chips showed no evidence of cancer. We discussed that his PSA will likely decrease after TURP. We will repeat a PSA today. Benign pro static hyperplasia with outflow obstruction [id number] N40.1 patient with history of BPH and a couple of episodes of urinary retention. He underwent TURP In November 2023 is voiding well. He states that he sleeps much better now very happy. He is off of previous prostate meds. Health Concerns Section Related Observation LastModified by Organization Detai ls LastModified Time None Recorded Concern Status LastModified by Organization Details LastModified Time None Recorded Advance Directives Directive Y: Payers Encounter Date Sequence Insurance Name Policy Number Policy Main Covered Member ID Main Member ID Guarantor Name 10/25/2023 2 [employer] (MEDICARE SUPPLEMENT) Panda Malikall [id number] Panda Parrish [place] 10/25/2023 1 [place] Panda Tang [id number] Panda Tang 11/06/2023 2 [employer] (MEDICARE SUPPLEMENT) Panda Malikall [id number] Panda Parrish [place] 11/06/2023 1 [place] Panda Parrish [place] [id number] Panda Malikall 12/09/2023 2 [employer] (MEDICARE SUPPLEMENT) Panda Malikall [id number] Panda Parrish [place] 12/09/2023 1 [place] Panda Parrish [place] [id number] Panda Parrish [place] 01/13/2024 2 [employer] (MEDICARE SUPPLEMENT) Panda Malikall [id number] Panda Parrish [place] 01/13/2024 1 [place] Panda Parrish [place] [id number] Panda Parrish [place] 03/12/2024 2 [employer] (MEDICARE SUPPLEMENT) Panda Tang [id number] Panda Tang 03/12/2024 1 [place] Panda Tang [id number] Panda Tang Notes Date Note Type Note Provider Name and Address Organization Details Recorded Time 10/25/2023 text/html patient is a 67-year-old white male with a history of elevated PSA and BPH. His most recent PSA was 8.5 with a free PSA putting him at a 20% risk of prostate cancer. His PSAs have been high quite some time. Patient did have a negative prostate biopsy in 2009. Does have a history of urinary retention in February 2022.Patient had difficulty voiding last week and went to the emergency room at [facility]. Mckeon catheter placed with 600 cc out. He was discharged home with his Mckeon catheter. He returns today follow-up. Maco Paul Jr, MD [address] [place] [address], [address], [address], [facility] [place] 10/25/2023 12:31:26 11/06/2023 text/html 68 yo male with recurrent retention. He went back to ER on 11/01 and mckeon placed with residual of 750 cc. Pt also with UTI with Klebsiella which was treated with Cefdinir. Pt has at least 2 previous episodes of retention. He is on Tamsulosin.Pt also with h/o elevated PSA. Most recent PSA was 8.5 in 08/2023 with free PSA putting him at 20 % risk of prostate cancer.ED visit reviewed for 11/02/23. Maco Paul Jr, MD [address] [place] [address], [address], [place], [address], [facility] & [place] 11/20/2023 21:44:38 12/09/2023 text/html patient is a 68-year-old white male status post TURP 6 days ago. He was discharged home with his Mckeon catheter and returns today for voiding trial. He denies any problems at home. His urine is clear today.Patient also has history of elevated PSA. His pathology from his prostate chips showed no evidence of cancer. His last PSA was 8.5 in August 2023. Maco Paul Jr, MD [address] [place] [address], [address], [place], [address], [place] [facility] [place] 12/09/2023 10:19:01 01/13/2024 text/html Patient is a 68-year-old white male with history of BPH and elevated PSA. Underwent a TURP on December 02 he returns in routine follow-up. Patient states he is very happy with the results and states he has a great stream and is only getting up at night 1 time.Patient with history of elevated PSA pathology from his prostate chips showed no evidence of cancer. We discussed that his PSA will likely decrease upon his next draw in February. Maco Paul Jr, MD [address] [facility], [address], [place], [address], [place] [facility] [place] 01/13/2024 12:23:19 03/12/2024 text/html 68-year-old whit e male with history of BPH and elevated PSA. Patient underwent a TURP on December 03, 2023. He continues to state very good results in his voiding very well he was happy.Patient with long history of elevated PSA. Pathology from his prostate chips at the time his TURP showed no evidence of prostate cancer. Maco Paul Jr, MD [address], [address], [place], [address], [place] [facility] [place] 03/12/2024 12:20:53
== END 2024-06-09 23:59 | disposition home or self-care (01) ==
LOC: RT 09:37
PROVIDERS: PCP Family Medicine; Visit Provider Family Medicine
DX: I49.1 Atrial premature depolarization (principal); I49.3 Ventricular premature depolarization; I10 Essential (primary) hypertension; Z82.49 Family history of ischemic heart disease and other diseases of the circulatory system; E11.9 Type 2 diabetes mellitus without complications
CPT/HCPCS: 93017; 93018